=== PATIENT | female | born 1950 | race Caucasian/White ===

== ENCOUNTER → 2017-09-16 | Outpatient (CLI) | payer OTHER | LOC: RAD 01:02 | DX: Z12.31 Encounter for screening mammogram for malignant neoplasm of breast (principal) ==

== ENCOUNTER → 2018-09-17 | Outpatient (CLI) | payer OTHER | LOC: RAD 10:26 | DX: Z12.31 Encounter for screening mammogram for malignant neoplasm of breast (principal) ==

== ENCOUNTER → 2018-10-14 | Outpatient (CLI) | payer OTHER ==
[~2018-10-14] VITALS: Ht 165.1 cm; Wt 102.5 kg
[~2018-10-14] MED LIST: AMARYL2 MG PO; ASPIRIN81 M2 PO; CALCIUM 600 +1 EA13 PO; COQ-10100 MG PO; CRESTOR40 MG PO; D3 PO; LASIX 20 MG TAB20 MG PO; LOSARTAN-HCTZ1 EACH PO; PRESSERVISION PO; TOPROL XL25 MG PO
--- NOTE | ~2018-10-14 | HPC ---
[facility] [place] [address] PAIN MANAGEMENT CONSULTATION Name: CB STAUFFER Room #: REG [facility].#: [id number] Admission: 10/14/18 ������������������ Attend Phys: Tayo Ernandez MD Discharge: ������������������ Date of : 54 Report #: [id number] THIS REPORT FOR: //name// CC: Bryan Ernandez DATE OF SERVICE: 10/14/2018 CHIEF COMPLAINT: Low back pain with radiculopathy on the left following a L4-L5 distribution. The patient is a fidel 68-year-old who is here today complaining of pain in her low back radiating into her left leg. It begins in her hip and goes all the way down into the calf. She has had pain for a number of years and has had previous back surgery. She had a cervical laminectomy in 2000 and 2008 and also underwent two low back surgeries, a low back surgery in 2008 and 2011, which appear to be laminectomies. She also had a brain aneurysm in [address] Laron Meza had placed a clip on the aneurysm at [facility]. She is here today because she has an upcoming trip to [place] with her grandchildren. She wants to be at her best. The back pain is limiting. She cannot walk far. She has been very limited in her mobility. She does a bit of grocery shopping and some tasks at home in short cooking, housework, but really cannot do very much because the pain is severe. She has cervical radiculopathy and likely some cervical stenosis. She describes driving a car with wet noodles in her arms. Her average daily pain in her low back and her left leg is 7-8/10. It is constant, cramping and aching. It is radiating in its nature. MEDICATIONS: Losartan, lovastatin, glimepiride, Lasix, metoprolol, calcium, vitamin D3 and low dose aspirin. ALLERGIES: None. PAST MEDICAL HISTORY: As described above. She also has hypertension and diabetes. SOCIAL HISTORY: She is retired, and a grandmother. She denies use of tobacco, drinks alcohol in a social setting. PHYSICAL EXAMINATION: [facility] [address] [place] [address] PAIN MANAGEMENT CONSULTATION Name: CB STAUFFER Room #: REG [facility].#: [id number] Admission: 10/14/18 ������������������ Attend Phys: Tayo Ernandez MD Discharge: ������������������ Date of : 54 Report #: [id number] GENERAL: This is a very fidel 68-year-old female, pleasant, alert and oriented. VITAL SIGNS: Blood pressure 159/78, heart rate 64 and her BMI is 32. She moves from sitting to standing position, ambulates with antalgic features. She has pain across her low back. CHEST: Clear. CARDIAC: Rhythm is regular. ABDOMEN: Soft. MUSCULOSKELETAL: Examination of the low back reveals a scarring from previous surgery. Straight leg raising is positive reproducing a radicular pain into the left leg. Sensation is intact. General weakness is noted in the lower extremities. IMPRESSION: Post-laminectomy syndrome with left lumbar radiculopathy. RECOMMENDATIONS: 1. I am sending her to [facility] for physical therapy to help her reach her goals of going to [place] with her family in one month. Hopefully, they can help her get into shape. 2. Lumbar epidural injection transforaminal L4-L5 under fluoroscopic guidance. PROCEDURE: She was taken to the fluoroscopic suite for treatment, placed prone, skin prepped with ChloraPrep. Skin anesthetized over the L4-L5 neural foramen. Using triplanar fluoroscopic views, I advanced the needle into the neural foramen. On the first attempt, there was no paresthesia, no blood nor CSF aspirated. A 1 mL of Omnipaque was injected. Good spread of dye observed in the epidural space followed by 3 mL of 0.5% lidocaine mixed with 80 mg triamcinolone. She tolerated the procedure well observed in recovery room for 45 minutes. Her pain score was 0 at discharge. ��������������������������������������������� ���������������������������������������� By: ��������������������������������������������� 1800 0731 Tayo Ernandez MD /nt
[2018-10-14 12:41] VITALS: BP 159/78
--- NOTE | 2018-10-14 12:57 | NUR ---
Pain Clinic Assessment: 1. History of Osteoarthritis: History of Rheumatoid Arthritis: 2. Height: 5 ft. 5 in. 165.1 cm. Weight: 226.0 lb. oz. 102.513 kg. Patient's BMI: 37.6 3. Vital Signs: BP: 159/78 Pulse: 64 Resp: 16 Temp: 02 Sat: 92 ECG Mon: 4. Pain Intensity: 7 5. Fall Risk: Dizziness: N Needs help standing or walking: N Fallen in the last 3 months: N Fall risk comments: 6. Patient on Blood Thinner: None 7. History of Hypertension: Y 8. Opioid Therapy greater than 6 weeks: N Opiate Contract Signed: 9. Risk Assessment Tool Provided: 10. Functional Assessment Tool: 11. Recreational Drug Use: Never Drug Type: Tobacco Use: Never Smoker Tobacco Type: Amount or Packs/day: How Many Years: Alcohol Use: Yes Frequency: Weekly Quant: 1-3
== END | disposition home or self-care (01) ==
LOC: PAIN 06:52
DX: M54.16 Radiculopathy, lumbar region (principal); M96.1 Postlaminectomy syndrome, not elsewhere classified; G89.29 Other chronic pain; I10 Essential (primary) hypertension; E11.9 Type 2 diabetes mellitus without complications; J45.909 Unspecified asthma, uncomplicated; Z98.890 Other specified postprocedural states; Z79.899 Other long term (current) drug therapy; Z90.49 Acquired absence of other specified parts of digestive tract; Z86.79 Personal history of other diseases of the circulatory system

== ENCOUNTER → 2018-11-17 | Outpatient (CLI) | payer OTHER | LOC: PUL 09:18 | DX: J44.9 Chronic obstructive pulmonary disease, unspecified (principal); Z79.899 Other long term (current) drug therapy ==

== ENCOUNTER → 2019-05-09 | Outpatient (CLI) | payer OTHER ==
[~2019-05-09] VITALS: Ht 172.7 cm; Wt 101.1 kg
[~2019-05-09] MED LIST changes: +HYDROCHLOROTH12.5 M2 PO; +LOSARTAN POTASS50 MG PO; +SOLIFENACIN SUC10 MG PO
[2019-05-09 14:15] VITALS: BP 135/80
--- NOTE | 2019-05-09 14:36 | NUR ---
Pain Clinic Assessment: 1. History of Osteoarthritis: B/L HANDS History of Rheumatoid Arthritis: NONE 2. Height: 5 ft. 8 in. 172.7 cm. Weight: 222.8 lb. oz. 101.062 kg. Patient's BMI: 33.9 3. Vital Signs: BP: 135/80 Pulse: 62 Resp: 18 Temp: 02 Sat: 98 ECG Mon: 4. Pain Intensity: 6-7 DAILY AVG 5. Fall Risk: Dizziness: N Needs help standing or walking: N Fallen in the last 3 months: N Fall risk comments: 6. Patient on Blood Thinner: None 7. History of Hypertension: Y 8. Opioid Therapy greater than 6 weeks: N Opiate Contract Signed: 9. Risk Assessment Tool Provided: 10. Functional Assessment Tool: 11. Recreational Drug Use: Never Drug Type: Tobacco Use: Never Smoker Tobacco Type: Amount or Packs/day: How Many Years: Alcohol Use: Yes Frequency: Weekly Quant: 1-2 GLASSES
== END | disposition home or self-care (01) ==
LOC: PAIN 07:01
DX: M54.16 Radiculopathy, lumbar region (principal); E11.9 Type 2 diabetes mellitus without complications; G47.00 Insomnia, unspecified; Z98.890 Other specified postprocedural states; Z79.899 Other long term (current) drug therapy; Z79.82 Long term (current) use of aspirin

== ENCOUNTER 2019-08-05 22:45 | Emergency (ER) | payer OTHER ==
[~2019-08-05] VITALS: Ht 165.1 cm; Wt 99.8 kg
[2019-08-06] MEDS ORDERED: AMOX TR-K CLV1 EAC3 PO (00:19)
[2019-08-06 00:43] VITALS: BP 143/67
== END 2019-08-06 00:43 | disposition home or self-care (01) ==
LOC: ER 22:45
DX: J18.9 Pneumonia, unspecified organism (principal); E11.9 Type 2 diabetes mellitus without complications; Z87.891 Personal history of nicotine dependence

== ENCOUNTER 2019-08-10 10:52 | Emergency (ER) | payer OTHER ==
[~2019-08-10] VITALS: Ht 165.1 cm; Wt 99.8 kg
[~2019-08-10 10:52] MED LIST changes: +AMOX TR-K CLV1 EAC3 PO
[2019-08-10 11:42] LABS: ABSOLUTE NEUTROPHILS 5.6 thou/uL (1.4-8.2); BASOPHILS 0.8 % (0.0-2.0); EOSINOPHILS 7.6 % (0.0-3.0); HEMATOCRIT 47.3 % (37.0-47.0); HEMOGLOBIN 15.5 gm/dL (12.0-15.0); LYMPHOCYTES 15.7 % (24.0-44.0); MCH 29.6 pg (26.0-34.0); MCHC 32.8 g/dL (28.0-37.0); MCV 90.2 fL (80.0-100.0); MONOCYTES 8.5 % (1.0-8.0); PLATELET COUNT 236 thou/uL (150-400); POLYS 67.4 % (36.0-66.0); RBC 5.24 mil/uL (4.20-5.00); RDW 13.5 % (10.5-14.5); WBC 8.3 thou/uL (4.0-11.0)
[2019-08-10 12:17] LABS: HCO3 22.2 mmol/L (22.0-26.0); PCO2 36.2 mmHg (35.0-45.0); PO2 77.6 mmHg (80.0-100.0); pH 7.405 (7.360-7.450); sO2 95.6 % (92.0-98.0)
[2019-08-10 13:31] LABS: APTT 28.2 Seconds (24.5-32.8); PROTIME 10.5 Seconds (9.3-11.4)
[2019-08-10 13:33] LABS: ANION GAP 8 mmol/L (7-16); BUN 16 mg/dL (7-18); CHLORIDE 102 mmol/L (98-107); CO2 29 mmol/L (21-32); CREATININE 0.9 mg/dL (0.6-1.0); GLUCOSE 187 mg/dL (74-106); SODIUM 139 mmol/L (136-145)
[2019-08-10 13:41] LABS: ALBUMIN 3.6 g/dL (3.4-5.0); LIPASE 87 U/L (73-393); SGOT 25 U/L (15-37); SGPT 26 U/L (30-65); TOTAL BILIRUBIN 0.4 mg/dL (<0.1-1.0); TOTAL PROTEIN 7.1 g/dL (6.4-8.2); TROPONIN-I <0.06 ng/mL (<0.06)
[2019-08-10 16:14] VITALS: BP 167/73
--- NOTE | 2019-08-11 08:19 | EKG ---
[facility] [place] [address] ELECTROCARDIOGRAM REPORT Name: CB STAUFFER Room #: [facility]#: [id number] Admission: 08/10/19 Attend Phys: Discharge: 08/10/19 Date of : 54 Report #: [id number] THIS REPORT FOR: cc: Doc Martínez MD, Christopher B. MD Lundgren,Joseph Bird MD [facility] ~ THIS REPORT FOR: //name// [facility] ED Test Date: 2019-08-10 Test Time: 11:02:19 Pat Name: CB STAUFFER Department: Room: Gender: [employer]ine [employer] Operator: ESHEETS : 1950 Requested By: Jennifer Valenzuela Order Number: [id number] MD: Joseph Thompson Measurements Intervals [place] Rate: 63 P: 57 LA: 197 QRS: -51 QRSD: 117 T: -10 QT: 425 QTc: 436 Interpretive Statements Sinus rhythm Left anterior fascicular block Left ventricular hypertrophy Borderline T abnormalities, diffuse leads Baseline wander in lead(s) V6 Compared to ECG 07/22/1998 14:36:00 Left anterior fascicular block now present T-wave abnormality now present Electronically Signed On 08-11-2019 8:18:26 CANDLE POURER by Joseph Thompson [email or web address] <ELECTRONICALLY SIGNED> By: Joseph Thompson MD, [facility] 08/11/19 0818 1102 1102 Joseph Thompson MD, [facility] /EPI
== END 2019-08-10 16:15 | disposition home or self-care (01) ==
LOC: ER 10:52
PROVIDERS: Emergency Medicine; Physician Assistant
DX: R07.89 Other chest pain (principal); R11.0 Nausea; I10 Essential (primary) hypertension; E11.9 Type 2 diabetes mellitus without complications; Z87.891 Personal history of nicotine dependence

== ENCOUNTER → 2019-10-12 | Outpatient (CLI) | payer OTHER | LOC: RAD 10:03 | DX: Z12.31 Encounter for screening mammogram for malignant neoplasm of breast (principal) ==

== ENCOUNTER → 2019-10-19 | Outpatient (CLI) | payer OTHER | LOC: SJCVC 12:55 | DX: R94.31 Abnormal electrocardiogram [ECG] [EKG] (principal); I44.4 Left anterior fascicular block; I44.0 Atrioventricular block, first degree; R93.1 Abnormal findings on diagnostic imaging of heart and coronary circulation; I10 Essential (primary) hypertension; E78.5 Hyperlipidemia, unspecified; E11.9 Type 2 diabetes mellitus without complications; J44.9 Chronic obstructive pulmonary disease, unspecified ==

== ENCOUNTER → 2020-07-16 | Outpatient (CLI) | payer OTHER | LOC: SJCVC 14:36 | PROVIDERS: ATTEND Internal Medicine | DX: R94.31 Abnormal electrocardiogram [ECG] [EKG] (principal); R00.1 Bradycardia, unspecified; I44.0 Atrioventricular block, first degree; R93.1 Abnormal findings on diagnostic imaging of heart and coronary circulation; I10 Essential (primary) hypertension; E78.5 Hyperlipidemia, unspecified; E11.9 Type 2 diabetes mellitus without complications; J44.9 Chronic obstructive pulmonary disease, unspecified; Z90.49 Acquired absence of other specified parts of digestive tract; Z96.642 Presence of left artificial hip joint; Z98.890 Other specified postprocedural states; Z79.899 Other long term (current) drug therapy; Z87.891 Personal history of nicotine dependence; Z82.49 Family history of ischemic heart disease and other diseases of the circulatory system ==

== ENCOUNTER → 2020-10-12 | Outpatient (CLI) | payer OTHER | LOC: BC 10:00 | DX: Z12.31 Encounter for screening mammogram for malignant neoplasm of breast (principal) ==

== ENCOUNTER → 2021-01-14 | Outpatient (CLI) | payer OTHER | LOC: SJCVC 13:07 | PROVIDERS: ATTEND Internal Medicine | DX: R94.31 Abnormal electrocardiogram [ECG] [EKG] (principal); R00.1 Bradycardia, unspecified; I44.0 Atrioventricular block, first degree; R93.1 Abnormal findings on diagnostic imaging of heart and coronary circulation; I10 Essential (primary) hypertension; E78.5 Hyperlipidemia, unspecified; E11.9 Type 2 diabetes mellitus without complications; J44.9 Chronic obstructive pulmonary disease, unspecified; Z90.49 Acquired absence of other specified parts of digestive tract; Z79.82 Long term (current) use of aspirin; Z79.899 Other long term (current) drug therapy; Z87.891 Personal history of nicotine dependence; Z82.49 Family history of ischemic heart disease and other diseases of the circulatory system ==

== ENCOUNTER → 2021-07-26 | Outpatient (CLI) | payer OTHER | LOC: SJCVC 12:42 | PROVIDERS: ATTEND Internal Medicine | DX: R94.31 Abnormal electrocardiogram [ECG] [EKG] (principal); I44.0 Atrioventricular block, first degree; I45.2 Bifascicular block; I49.1 Atrial premature depolarization; R93.1 Abnormal findings on diagnostic imaging of heart and coronary circulation; I10 Essential (primary) hypertension; E78.5 Hyperlipidemia, unspecified; E11.9 Type 2 diabetes mellitus without complications; J44.9 Chronic obstructive pulmonary disease, unspecified; M47.816 Spondylosis without myelopathy or radiculopathy, lumbar region; Z87.891 Personal history of nicotine dependence; Z72.89 Other problems related to lifestyle; Z86.73 Personal history of transient ischemic attack (TIA), and cerebral infarction without residual deficits; Z79.899 Other long term (current) drug therapy; Z82.49 Family history of ischemic heart disease and other diseases of the circulatory system ==

== ENCOUNTER → 2021-07-30 | Outpatient (CLI) | payer OTHER | LOC: SJCVCIMAG 13:09 | PROVIDERS: ATTEND Internal Medicine | DX: I08.1 Rheumatic disorders of both mitral and tricuspid valves (principal); I11.9 Hypertensive heart disease without heart failure ==